=== PATIENT | male | born 1995 | race Caucasian/White ===

== ENCOUNTER 2021-05-04 11:24 | Emergency (ER) | payer OTHER, SELFPAY ==
[2021-05-04 11:38] VITALS: BP 141/79; PULSE 63; RESP 14; TEMP 36.6; O2SAT 99; BMI 38.6
--- NOTE | 2021-05-04 11:39 | DI.US.S_ITS ---
PROCEDURE: US ABDOMEN LIMITED INDICATIONS: UPPER ABDOMINAL PAIN. NAUSEA, VOMITING, AND DIARRHEA TECHNIQUE: Real-time focused scanning was performed of the abdomen, with image documentation. COMPARISON: None. FINDINGS: Liver is normal in size and homogeneous echotexture. Liver is diffusely echogenic. No focal hepatic mass lesions. Gallbladder is sonographically normal. No gallstones. No gallbladder wall thickening. No pericholecystic fluid. No sonographic Reyes sign. No intrahepatic biliary tree dilatation. Extrahepatic biliary tree is obscured by bowel gas and cannot be evaluated. Pancreas is obscured by bowel gas and cannot be evaluated. IMPRESSION: 1. No sonographic evidence of cholelithiasis or cholecystitis. If there is continued clinical concern for cholecystitis, a nuclear medicine HIDA scan should be considered for further evaluation. 2. Echogenic liver. Finding typically represents fatty infiltration; however, finding is nonspecific and correlation with clinical and laboratory findings is recommended to exclude other etiologies including hepatic cirrhosis. Dictated by: La Varghese MD, PhD on 05/04/2021 at 12:22 Approved by: La Varghese MD, PhD on 05/04/2021 at 12:23
[2021-05-04] MEDS: ONDANSETRON 4 MG/2 ML INJ IV (11:53)
[2021-05-04] MEDS: SODIUM CHLORIDE 0.9% 1,000 ML 1000 ML IV (11:54)
[2021-05-04] MEDS: PANTOPRAZOLE 40 MG VIAL IV (11:54)
[2021-05-04 11:55] LABS: Add Manual Diff / Slide Review NO; Basophils Absolute Auto 0 /uL (0-100); Basophils Percent Auto 0.5 % (0-2); Eosinophils Absolute Auto 100 /uL (0-450); Eosinophils Percent Auto 1.7 % (2-4); Hematocrit 46.9 % (41-53); Hemoglobin 15.9 g/dL (13.5-17.5); Lymphocytes Absolute Auto 1600 /uL (1100-4500); Lymphocytes Percent Auto 23.5 % (25-40); Mean Corpuscular HGB Conc 33.8 % (30-36); Mean Corpuscular Hemoglobin 28.9 PG (26-34); Mean Corpuscular Volume 85.3 fL (80-100); Monocytes Absolute Auto 400 /uL (0-900); Monocytes Percent Auto 5.9 % (3-14); Neutrophils Absolute Auto 4700 /uL (1500-7000); Neutrophils Percent Auto 68.4 % (50-75); Platelet Count 234 X10^3/uL (150-400); Red Blood Cell Count 5.49 X10^6/uL (4.5-5.9); White Blood Cell Count 6.9 X10^3/uL (4.5-11.0)
[2021-05-04 12:05] VITALS: PULSE 47; O2SAT 99
[2021-05-04 12:07] VITALS: BP 119/57; PULSE 53; O2SAT 99
[2021-05-04 12:13] LABS: Alanine Aminotransferase 27 IU/L (<50); Albumin 4.8 g/dL (3.5-5.0); Albumin Globulin Ratio 1.5 (1.0-2.8); Alkaline Phosphatase 46 U/L (38-126); Aspartate Aminotransferase 36 IU/L (17-59); BUN Creatinine Ratio 13.5 (6-22); Blood Urea Nitrogen 13 mg/dL (9-20); Carbon Dioxide 27 mmol/L (22-32); Chloride 103 mmol/L (98-107); Estimated Glomerular Filt Rate > 60.0 mL/min (>60); Globulin 3.3 g/dL (1.7-4.1); Glucose 117 mg/dL (70-100); HEMOLYSIS < 15 (0-50); Lipase 74 U/L (23-300); Potassium 3.8 mmol/L (3.4-5.1); Sodium 139 mmol/L (137-145); Total Protein 8.1 g/dL (6.3-8.2)
--- NOTE | 2021-05-04 12:45 | ED_ITS ---
HPI - Abdominal Pain General Chief Complaint: Abdominal Pain Stated Complaint: jittery/sick to stomach/weak in mornings Time Seen by Provider: 05/04/21 11:38 Source: patient Mode of arrival: Ambulatory Limitations: no limitations History of Present Illness HPI narrative: Male nonsmoker with medical history consisting of multiple complications as the results of an appendectomy about 4 years ago. He subsequently developed a ventral hernia that required repair as well, he has had no surgical interventions for 4 years. He presents today because he has had 2-3 years of generalized stomach pressure with frequent nausea, vomiting and diarrhea. He occasionally has blood in it. He denies any significant history o f alcohol use, he has no esophageal varices, he is not dizzy nor weak or lightheaded. He frequently develops sweating in the middle the night and has generally felt unwell for the past few years. When asked why he presents today, what is different he states that he has had trouble getting his doctors to take a look. Related Data Previous Rx's Medication Instructions Recorded ondansetron 4 mg disintegrating 4 mg PO TID-QID PRN #10 tab 05/04/21 tablet Allergies Allergy/AdvReac Type Severity Reaction Status Date / Time No Known Drug Allergies Allergy Verified 05/04/21 11:38 Review of Systems Review of Systems Narrative: GENERAL: See HP HEENT: Denies sinus pain, ear pain, sore throat, difficulty swallowing, dizziness. RESPIRATORY: Denies dyspnea, cough, wheezing, hemoptysis, sputum. CARDIOVASCULAR: Denies chest pain, palpitations, orthopnea, edema, GASTROINTESTINAL: See HPI : Denies dysuria, frequency, incontinence, hematuria, urinary retention. MUSCULOSKELETAL: denies weakness, joint pain, or bony pain SKIN: Denies rash, skin lesions, or other NEUROLOGIC: Denies weakness, headache, numbness, change in speech, confusion, seizures, incoordination. PSYCHIATRIC: No concerning psychosocial issues. 12 point review of systems is negative except for those stated above Patient History Social History Smoking Status: Unknown if ever smoked Smoking Status: Unknown if ever smoked alcohol intake frequency: holidays/special occasions only Substance Use Type: marijuana Exam Narrative Exam Narrative: GENERAL: [25] year old patient appears stated age. Well-develope d patient, in mild distress. HEAD: Atraumatic. Normocephalic. EYES: Pupils equal round and reactive. Extraocular motions intact. No scleral icterus. No injection or drainage. ENT: Nose without bleeding, purulent drainage. Throat without erythema, tonsillar hypertrophy or exudate. Airway patent. NECK: Trachea midline. Non tender CARDIOVASCULAR: Regular rate and rhythm without murmurs, gallops, or rubs. RESPIRATORY: Clear to auscultation. Breath sounds equal bilaterally. No wheezes, rales, or rhonchi. GASTROINTESTINAL: Abdomen soft, non-tender, nondistended. EXTREMITIES: No edema or joint tenderness. BACK: Nontender without deformity or crepitance. No flank tenderness. NEURO: AOx3. SKIN: No rash or erythema of visible areas Initial Vital Signs Initial Vital Signs: Vital Signs Temperature 97.8 F 05/04/21 11:38 Pulse Rate 63 05/04/21 11:38 Respiratory Rate 14 05/04/21 11:38 Blood Pressure 141/79 H 05/04/21 11:38 Pulse Oximetry 99 05/04/21 11:38 Course Orders Ordered: ED Orders 05/04/21 11:39 US abdomen limited Stat 05/04/21 11:45 Complete Blood Count AUTO DIFF Stat Comprehensive Metabolic Panel Stat Lipase Stat Magnesium Stat 05/04/21 12:25 Urine Microscopic Stat Ondansetron HCl (Ondansetron 4 Mg/2 Ml Inj) 4 mg IV Q4HR PRN PRN Reason: Nausea And Vomiting Last Admin: 05/04/21 11:53 Dose: 4 mg Documented by: HAKEEM Discontinued Medications Sodium Chloride (Normal Saline 0.9%) 1,000 mls @ 1,000 mls/hr IV BOLUS ONE Stop: 05/04/21 12:37 Last Infusion: 05/04/21 13:05 Dose: 0 mls/hr Documented by: Admin: 05/04/21 11:54 Dose: 1,000 mls/hr Documented by: HAKEEM Pantoprazole Sodium (Pantoprazole 40 Mg Vial) 40 mg IV NOW ONE Stop: 05/04/21 11:39 Last Admin: 05/04/21 11:54 Dose: 40 mg Documented by: HAKEEM Vital Signs Vital signs: Vital Signs - 8 hr 05/04/21 11:38 05/04/21 12:05 05/04/21 12:07 Temperature 97.8 F Pulse Rate 63 47 L 53 L Respiratory Rate 14 Blood Pressure 141/79 H 119/57 L Pulse Oximetry 99 99 99 MDM - Abdominal Pain Lab Data Result diagrams: 05/04/21 11:45 05/04/21 11:45 Labs: Lab Results 05/04/21 05/04/21 05/04/21 Range/Units 11:45 11:45 12:25 WBC 6.9 (4.5-11.0) X10^3/uL RBC 5.49 (4.5-5.9) X10^6/uL Hgb 15.9 (13.5-17.5) g/dL Hct 46.9 (41-53) % MCV 85.3 (80-100) fL MCH 28.9 (26-34) PG MCHC 33.8 (30-36) % RDW 13.0 (11.6-14.8) % Plt Count 234 (150-400) X10^3/uL Neut % (Auto) 68.4 (50-75) % Lymph % (Auto) 23.5 L (25-40) % [facility] % (Auto) 5.9 (3-14) % Eos % (Auto) 1.7 L (2-4) % Baso % (Auto) 0.5 (0-2) % Neut # (Auto) 4700 (4652-1855) /uL Lymph # (Auto) 1600 (3904-5942) /uL [facility] # (Auto) 400 (0-900) /uL Eos # (Auto) 100 (0-450) /uL Baso # (Auto) 0 (0-100) /uL Sodium 139 (137-145) mmol/L Potassium 3.8 (3.4-5.1) mmol/L Chloride 103 (98-107) mmol/L Carbon Dioxide 27 (22-32) mmol/L BUN 13 (9-20) mg/dL Creatinine 0.96 (0.66-1.25) mg/dL Estimated GFR > 60.0 (>60) mL/min BUN/Creatinine Ratio 13.5 (6-22) Glucose 117 H (70-100) mg/dL Calcium 10.0 (8.4-10.2) mg/dL Magnesium 2.0 (1.6-2.3) mg/dL Total Bilirubin 1.0 (0.2-1.3) mg/dL AST 36 (17-59) IU/L ALT 27 (<50) IU/L Alkaline Phosphatase 46 (38-126) U/L Total Protein 8.1 (6.3-8.2) g/dL Albumin 4.8 (3.5-5.0) g/dL Globulin 3.3 (1.7-4.1) g/dL Albumin/Globulin Ratio 1.5 (1.0-2.8) Lipase 74 (23-300) U/L Urine RBC None seen (0-5/HPF) Urine WBC 0-1/hpf (0-5/HPF) Urine Bacteria None seen (None) Urine Mucus 1+ H (Negative) Ur Culture Indicated? Cult not indicated Point of care testing: Urine Dip Bedside Urine Glucose Negative Bedside Urine Bilirubin - Negative Bedside Urine Ketone - Negative Urine Specific [place] 1.020 Bedside Urine Occult Blood - Negative Bedside Urine pH 6.5 Bedside Urine Protein + 30 Bedside Urine Urobilinogen - Negative Bedside Urine Nitrite - Negative Bedside Urine Leukocytes - Negative Esterase Imaging Data US - abdomen: Radiologist's Impression: Belle Galicia DO Find Patient Imaging - IlyaManjinder Larry 25 M 1995 ACTIVITY DATE EXAM STATUS AUTHOR 05/04/21 11:[address] [id number] ReportSigned Patient: Manjinder Caraballo JMR#: [id number]: 1995Acct:[id number]/Sex: 25 / MDate of Service: 05/04/21Loc: EDAccession Number: [id number] Procedure: US abdomen limited Ordering Provider: Bassem Galicia D.O. PROCEDURE: US ABDOMEN LIMITED INDICATIONS: UPPER ABDOMINAL PAIN. NAUSEA, VOMITING, AND DIARRHEA TECHNIQUE: Real-time focused scanning was performed of the abdomen, with image documentation. COMPARISON: None. FINDINGS: Liver is normal in size and homogeneous echotexture. Liver is diffusely e chogenic. No focal hepatic mass lesions. Gallbladder is sonographically normal. No gallstones. No gallbladder wall thickening. No pericholecystic fluid. No sonographic Reyes sign. No intrahepatic biliary tree dilatation. Extrahepatic biliary tree is obscured by bowel gas and cannot be evaluated. Pancreas is obscured by bowel gas and cannot be evaluated. IMPRESSION: 1. No sonographic evidence of cholelithiasis or cholecystitis. If there is continued clinical concern for cholecystitis, a nuclear medicine HIDA scan should be considered for further evaluation. 2. Echogenic liver. Finding typically represents fatty infiltration; however, finding is nonspecific and correlation with clinical and laboratory findings is recommended to exclude other etiologies including hepatic cirrhosis. Dictated by: La Varghese MD, PhD on 05/04/2021 at 12:22 Approved by: La Varghese MD, PhD on 05/04/2021 at 12:23 [facility] Narrative Medical decision making narrative: Multiple etiologies for patient's symptoms considered including: [Gallbladder disease versus pancreatitis versus other acute on chronic problems] Patient's symptoms improved over duration of stay with above-stated therapies. Findings and discharge diagnosis discussed with patient/family followed by verbalization of understanding Return precautions discussed with patient/family whom verbalize understanding. Discharge Plan Departure Patient Disposition: Home Clinical Impression: Abdominal pain Qualifiers: Abdominal location: generalized Qualified Code(s): R10.84 - Generalized abdominal pain Vomiting Qualifiers: Vomiting type: unspecified Vomiting Intractability: non-intractable Nausea presence: with nausea Qualified Code(s): R11.2 - Nausea with vomiting, unspecified Instructions: DI for Abdominal Pain-Adult Activity Restrictions/Additional Instructions: *You have been diagnosed with [acute on chronic abdominal pain with episodes of nausea, vomiting and diarrhea. Your physical exam, lab work and imaging today was very reassuring.] *What to do: *Please continue to take your regular medications as directed. [ ] New medication prescriptions sent to your pharmacy: [ ] [x ] New medication written as a paper prescription [ ] No new medications given 1. Drink plenty of fluids with frequent small sips. 2. For the next 24 hours a clear liquid diet is advised. After that please employ a B.R.A.T. diet which would include bananas, rice, apples, toast and other mild food items 3. Please take medications as directed. 4. Please follow-up with your doctor in the next 1-2 days. Call the office for an appointment. Let them know you were seen in the Emergency Department and that we ask that you be seen in follow up. We will electronically transmit a record of today's note if your PCP is in our system 5. Please return to the emergency Department for any worsening or persistent symptoms, such as increasing pain or fever. *Return to Emergency Department if you should have any new, worsening or concerning symptoms, such as [fever greater than 101 F, shaking chills, worse bo pain, persistent vomiting or other bothersome symptoms] Prescriptions: New ondansetron 4 mg tablet,disintegrating 4 mg PO TID-QID PRN (Reason: nausea and vomiting) Qty: 10 RF: 0 Referrals: Luh Melo DO [Primary Care Provider] -
[2021-05-04 12:50] LABS: Bacteria Urine None Seen; RBC Urine None Seen (0-5/HPF)
[2021-05-04 12:59] LABS: Culture Indicated Urine Cult Not Indicated; Mucus Urine 1+ (Negative); WBC Urine 0-1/HPF (0-5/HPF)
[2021-05-04 13:29] VITALS: BP 120/85; PULSE 64; RESP 16; O2SAT 99
== END 2021-05-04 13:31 | disposition home or self-care (01) ==
PROVIDERS: Emergency Provider Emergency Medicine; PCP Family Medicine
DX: R10.84 Generalized abdominal pain (principal); R11.2 Nausea with vomiting, unspecified; R19.7 Diarrhea, unspecified
CPT/HCPCS: 36415; 76705; 80053; 81003; 81015; 83690; 83735; 85025; 96361; 96374; 96375; 99284; C9113; J2405

== ENCOUNTER 2021-05-08 22:09 | Emergency (ER) | payer OTHER, SELFPAY ==
[2021-05-08 22:23] VITALS: BP 147/63; PULSE 51; RESP 18; TEMP 36.8; O2SAT 98; BMI 36.6
[2021-05-08 22:39] LABS: Add Manual Diff / Slide Review NO; Basophils Absolute Auto 200 /uL (0-100); Basophils Percent Auto 2.8 % (0-2); Eosinophils Absolute Auto 0 /uL (0-450); Eosinophils Percent Auto 0.4 % (2-4); Hematocrit 44.7 % (41-53); Hemoglobin 15.2 g/dL (13.5-17.5); Lymphocytes Absolute Auto 1300 /uL (1100-4500); Lymphocytes Percent Auto 14.9 % (25-40); Mean Corpuscular HGB Conc 33.9 % (30-36); Mean Corpuscular Hemoglobin 29.1 PG (26-34); Mean Corpuscular Volume 85.9 fL (80-100); Monocytes Absolute Auto 500 /uL (0-900); Monocytes Percent Auto 6.1 % (3-14); Neutrophils Absolute Auto 6600 /uL (1500-7000); Neutrophils Percent Auto 75.8 % (50-75); Platelet Count 234 X10^3/uL (150-400); Red Blood Cell Count 5.21 X10^6/uL (4.5-5.9); Red Cell Distribution Width 12.8 % (11.6-14.8); White Blood Cell Count 8.7 X10^3/uL (4.5-11.0)
[2021-05-08] MEDS: ONDANSETRON 4 MG/2 ML INJ IV (22:40)
[2021-05-08] MEDS: SODIUM CHLORIDE 0.9% 1,000 ML 1000 ML IV (22:40)
[2021-05-08 22:49] LABS: Alanine Aminotransferase 26 IU/L (<50); Albumin 4.6 g/dL (3.5-5.0); Albumin Globulin Ratio 1.5 (1.0-2.8); Alkaline Phosphatase 44 U/L (38-126); Aspartate Aminotransferase 36 IU/L (17-59); BUN Creatinine Ratio 12.5 (6-22); Bilirubin Total 0.9 mg/dL (0.2-1.3); Blood Urea Nitrogen 13 mg/dL (9-20); Calcium 9.5 mg/dL (8.4-10.2); Carbon Dioxide 26 mmol/L (22-32); Chloride 101 mmol/L (98-107); Estimated Glomerular Filt Rate > 60.0 mL/min (>60); Glucose 96 mg/dL (70-100); HEMOLYSIS < 15 (0-50); Lipase 90 U/L (23-300); Potassium 3.4 mmol/L (3.4-5.1); Sodium 137 mmol/L (137-145); Total Protein 7.6 g/dL (6.3-8.2)
[2021-05-08 23:09] LABS: COVID19 -Nasal RAPID Negative (Negative)
--- NOTE | 2021-05-08 23:23 | ED.ABDPAIN ---
HPI - Abdominal Pain General Chief Complaint: Abdominal Pain Stated Complaint: VOMITING AND ABD PAIN Time Seen by Provider: 05/08/21 22:14 Source: patient Mode of arrival: Ambulatory Limitations: no limitations History of Present Illness HPI narrative: 25-year-old gentleman with a history of multiple abdominal surgeries for abdominal hernias with resultant mesh placement after complications from an appendectomy. Notes this he is having recurrent episodes of emesis associated with general malaise. Abdominal pain significant enough that he is unable to eat. He describes intermittent episodes of bloody stool weeks where he has extraordinarily fatigued. Symptoms have been ongoing for a number of years he has had an increase in symptoms in the last couple of days and was seen evaluated in the emergency department for the same on May 04. He notes that he continues to be waking up in the middle of the night with sweats and having recurrent vomiting in the morning. He has had upper and lower endoscopies with no significant findings. He states he ?feels like I am dying?. He does not describe chest pain, palpitations or cough. He does note that he feels like his lungs are filling up with fluid. He does not describe depression anxiety and is not having any suicidal thoughts or ideation. Related Data Previous Rx's Medication Instructions Recorded ondansetron 4 mg disintegrating 4 mg PO TID-QID PRN #10 tab 05/04/21 tablet metoclopramide HCl 10 mg tablet 10 mg PO Q6H PRN #20 tab 05/09/21 ondansetron 4 mg disintegrating 4 mg PO Q6H PRN #20 tab 05/09/21 tablet Allergies Allergy/AdvReac Type Severity Reaction Status Date / Time No Known Drug Allergies Allergy Verified 05/04/21 11:38 Review of Systems Review of Systems Narrative: Remainder of complete review of systems is otherwise unremarkable except for that included in the HPI. Patient History Medical History (Updated 05/09/21 @ 03:14 by Rosa Faulkner MD) Abdominal wall hernia Surgical History (Updated 05/09/21 @ 02:59 by Rosa Faulkner MD) History of appendectomy Social History Smoking Status: Unknown if ever smoked Smoking Status: Unknown if ever smoked alcohol intake frequency: holidays/special occasions only Substance Use Type: marijuana Exam Narrative Exam Narrative: General: Healthy appearing, in no acute distress. Able to give a complete and coherent history. Well-nourished well-developed HEENT: Moist mucous membranes, normal sclera with reactive pupils, Respiratory: Lungs are clear to auscultation, no wheezing no rales no rhonchi. Full and symmetrical air movement Cardiac: Regular rate and rhythm no murmurs no bruits Abdomen: Soft, nontender, good bowel tones, no flank pain Skin: Warm and dry, no rashes Neurologic: Grossly neurologically intact with no obvious asymmetries or abnormalities Extremities: No trauma, well perfused Psych: Cooperative, appropriate insight and affect Initial Vital Signs Initial Vital Signs: Vital Signs Temperature 98.2 F 05/08/21 22:23 Pulse Rate 51 L 05/08/21 22:23 Respiratory Rate 18 05/08/21 22:23 Blood Pressure 147/63 H 05/08/21 22:23 Pulse Oximetry 98 05/08/21 22:23 Course Orders Ordered: ED Orders 05/08/21 22:30 Complete Blood Count AUTO DIFF Stat Comprehensive Metabolic Panel Stat Lipase Stat 05/08/21 22:45 COVID19 -Nasal swab/Pre-Proc Stat 05/09/21 00:13 CT abdomen pelvis w con Stat Hydromorphone HCl (Hydromorphone 0.5 Mg Inj) 0.5 mg IV Q15MIN PRN PRN Reason: Pain, Discontinued Medications Sodium Chloride (Normal Saline 0.9%) 1,000 mls @ 1,000 mls/hr IV BOLUS ONE Stop: 05/08/21 23:22 Last Infusion: 05/09/21 00:07 Dose: 0 mls/hr Documented by: Admin: 05/08/21 22:40 Dose: 1,000 mls/hr Documented by: CTRCHRISTOPHER Metoclopramide HCl (Metoclopramide 10 Mg/2 Ml Inj) 10 mg IV NOW ONE Stop: 05/09/21 03:07 Ondansetron HCl (Ondansetron 4 Mg/2 Ml Inj) 4 mg IV NOW ONE Stop: 05/08/21 22:24 Last Admin: 05/08/21 22:40 Dose: 4 mg Documented by: SHELLY Ondansetron HCl (Ondansetron 4 Mg/2 Ml Inj) 4 mg IV NOW ONE Stop: 05/09/21 01:19 Last Admin: 05/09/21 01:26 Dose: 4 mg Documented by: HERBERT Ondansetron HCl (Ondansetron 4 Mg Odt Prepack) 1 bottle MISC SEEINSTR ONE Stop: 05/09/21 03:07 Vital Signs Vital signs: Vital Signs - 8 hr 05/08/21 22:23 Temperature 98.2 F Pulse Rate 51 L Respiratory Rate 18 Blood Pressure 147/63 H Pulse Oximetry 98 MDM - Abdominal Pain Lab Data Result diagrams: 05/08/21 22:30 05/08/21 22:30 Labs: Lab Results 05/08/21 05/08/21 05/08/21 Range/Units 22:30 22:30 22:45 WBC 8.7 (4.5-11.0) X10^3/uL RBC 5.21 (4.5-5.9) X10^6/uL Hgb 15.2 (13.5-17.5) g/dL Hct 44.7 (41-53) % MCV 85.9 (80-100) fL MCH 29.1 (26-34) PG MCHC 33.9 (30-36) % RDW 12.8 (11.6-14.8) % Plt Count 234 (150-400) X10^3/uL Neut % (Auto) 75.8 H (50-75) % Lymph % (Auto) 14.9 L (25-40) % [place] % (Auto) 6.1 (3-14) % Eos % (Auto) 0.4 L (2-4) % Baso % (Auto) 2.8 H (0-2) % Neut # (Auto) 6600 (6394-7468) /uL Lymph # (Auto) 1300 (5141-4476) /uL [place] # (Auto) 500 (0-900) /uL Eos # (Auto) 0 (0-450) /uL Baso # (Auto) 200 H (0-100) /uL Sodium 137 (137-145) mmol/L Potassium 3.4 (3.4-5.1) mmol/L Chloride 101 (98-107) mmol/L Carbon Dioxide 26 (22-32) mmol/L BUN 13 (9-20) mg/dL Creatinine 1.04 (0.66-1.25) mg/dL Estimated GFR > 60.0 (>60) mL/min BUN/Creatinine Ratio 12.5 (6-22) Glucose 96 (70-100) mg/dL Calcium 9.5 (8.4-10.2) mg/dL Total Bilirubin 0.9 (0.2-1.3) mg/dL AST 36 (17-59) IU/L ALT 26 (<50) IU/L Alkaline Phosphatase 44 (38-126) U/L Total Protein 7.6 (6.3-8.2) g/dL Albumin 4.6 (3.5-5.0) g/dL Globulin 3.0 (1.7-4.1) g/dL Albumin/Globulin Ratio 1.5 (1.0-2.8) Lipase 90 (23-300) U/L SARS-CoV-2 (PCR) Negative (Negative) Imaging Data CT scan - abdomen/pelvis: Radiologist's Impression: Prominent lymph nodes in the right mid abdomen without overt adenopathy. This finding can be seen with enteritis or chronic low grade bowel inflammation. Gerardo Reagan MD [facility] Narrative Medical decision making narrative: 25-year-old gentleman with recurrent nausea vomiting and abdominal pain after appendectomy approximately 5 years ago. He has had multiple workups and today CT scan was minimally revealing. Continues to feel like he is chronically ill. Reassurance is given regarding labs as well as CT scans. No evidence of infection, bowel obstruction, metabolic abnormalities or electrolyte abnormalities. Clearly there is more to the story and I have encouraged him to follow-up with additional providers as an outpatient. He is safe for home discharge Discharge Plan Departure Patient Disposition: Home Clinical Impression: Abdominal pain Qualifiers: Abdominal location: upper abdomen, unspecified Qualified Code(s): R10.10 - Upper abdominal pain, unspecified Vomiting Qualifiers: Vomiting type: unspecified Vomiting Intractability: non-intractable Nausea presence: with nausea Qualified Code(s): R11.2 - Nausea with vomiting, unspecified Instructions: DI for Abdominal Pain-Adult Activity Restrictions/Additional Instructions: Thank you for coming in today Fortunately I did not find any life-threatening explanation for your pain. Your CT scan suggested mild inflammation of your gut which is absolutely consistent with your complaints and physical exam. Unfortunately, I also do not have suggestions on how best to alleviate your pain or what the next steps might be. I have given you some Zofran to go home with. I have given you a prescription for both Zofran/ondansetron and Reglan/metoclopramide. Both her anti nausea medications that work through different mechanisms. Please do follow-up with your primary care provider. I hope that you feel better Prescriptions: New ondansetron 4 mg tablet,disintegrating 4 mg PO Q6H PRN (Reason: nausea and vomiting) Qty: 20 RF: 1 metoclopramide HCl 10 mg tablet 10 mg PO Q6H PRN (Reason: nausea and vomiting) Qty: 20 RF: 1 No Action ondansetron 4 mg tablet,disintegrating 4 mg PO TID-QID PRN (Reason: nausea and vomiting) Qty: 10 RF: 0 Referrals: Luh Melo DO [Primary Care Provider] -
--- NOTE | 2021-05-09 00:13 | DI.CT.S_ITS ---
PROCEDURE: CT ABDOMEN PELVIS W CON INDICATIONS: abdominal pain, multiple prior abdomnal wall hernia surgerie TECHNIQUE: After the administration of intravenous contrast, axial sections acquired from the lung bases to the pubic symphysis. Coronal and sagittal reformats were performed. For radiation dose reduction, the following was used: automated exposure control, adjustment of mA and/or kV according to patient size. COMPARISON: [facility], CT, CT ABDOMEN PELVIS WITH CONTRAST, 06/26/2020, 13:31. FINDINGS: Image quality: Excellent. Lung bases: Unremarkable. Heart: No significant findings. ABDOMEN: Liver: Unremarkable. Gallbladder: Unremarkable. Biliary ducts: Unremarkable. Pancreas: Unremarkable. Spleen: Unremarkable. Adrenal Glands: Unremarkable. Kidneys and Ureters: Unremarkable. Stomach and Bowel: Stomach, small bowel loops, and colon are unremarkable. Appendectomy clips are present. Peritoneum: No abnormal intraperitoneal fluid. No free air. Ventral Wall: No hernias. Abdominal Nodes: No retroperitoneal adenopathy. No change in mildly enlarged lymph node within the right hemiabdomen posteriorly measuring 11 mm short axis. Vessels: Aorta and inferior vena cava are normal in size. PELVIS: Pelvic Organs: Unremarkable. Bladder: Unremarkable. Pelvic Nodes: No enlarged lymph nodes. Miscellaneous: No hernias are seen. Bones: Unremarkable. IMPRESSION: 1. No acute process. 2. No change in mild adenopathy within the right lower quadrant mesentery. 3. Concordant with preliminary interpretation. Dictated by: Sury Ramos M.D. on 05/09/2021 at 7:47 Approved by: Sury Ramos M.D. on 05/09/2021 at 7:49
[2021-05-09] MEDS: ONDANSETRON 4 MG/2 ML INJ IV (01:26)
[2021-05-09] MEDS: METOCLOPRAMIDE 10 MG/2 ML INJ IV (03:15)
[2021-05-09] MEDS: ONDANSETRON 4 MG ODT PREPACK 1 BOTTLE MISC (03:16)
[2021-05-09 03:45] VITALS: BP 119/59; PULSE 55; RESP 15; TEMP 36.3; O2SAT 97
== END 2021-05-09 03:35 | disposition home or self-care (01) ==
PROVIDERS: Emergency Provider Emergency Medicine; PCP Family Medicine
DX: R10.10 Upper abdominal pain, unspecified (principal); R11.2 Nausea with vomiting, unspecified; Z20.822 Contact with and (suspected) exposure to COVID-19
CPT/HCPCS: 36415; 74177; 80053; 83690; 85025; 87635; 96361; 96374; 96375; 96376; 99284; C9803; J2405; J2765; Q9967

== ENCOUNTER 2022-06-16 08:30 | Emergency (ER) | payer OTHER, SELFPAY ==
[2022-06-16] VITALS (9 sets, daily range): BP systolic 125–165; BP diastolic 60–98; PULSE 37–58; RESP 11–24; TEMP 36.9–37.1; O2SAT 97–100; BMI 38.0
--- NOTE | 2022-06-16 08:50 | DI.CT.S_ITS ---
PROCEDURE: CT ABDOMEN PELVIS W CON INDICATIONS: IV contrast only/epigastric pain TECHNIQUE: After the administration of intravenous contrast, axial sections acquired from the lung bases to the pubic symphysis. Coronal and sagittal reformats were performed. For radiation dose reduction, the following was used: automated exposure control, adjustment of mA and/or kV according to patient size. COMPARISON: [facility], CT, CT ABDOMEN PELVIS W CON, 05/09/2021, 0:30. FINDINGS: Image quality: Excellent. Lung bases: Unremarkable. Heart: No significant findings. ABDOMEN: Liver: Unremarkable. Gallbladder: Is within normal limits Biliary ducts: Unremarkable. Pancreas: Unremarkable. Spleen: Unremarkable. Adrenal Glands: Unremarkable. Kidneys and Ureters: Unremarkable. Stomach and Bowel: Small hiatal hernia. Mild thickening of the distal esophagus, new since the prior examination. Stomach, small bowel loops, and colon are unremarkable. Normal appendix. Peritoneum: No abnormal intraperitoneal fluid. No free air. Ventral Wall: No hernias. Abdominal Nodes: No retroperitoneal or mesenteric adenopathy by size criteria. No change in mildly prominent subcentimeter right lower quadrant mesenteric lymph nodes. Vessels: Aorta and inferior vena cava are normal in size. PELVIS: Pelvic Organs: Unremarkable. Bladder: Unremarkable. Pelvic Nodes: No enlarged lymph nodes. Miscellaneous: No hernias are seen. Bones: Unremarkable. IMPRESSION: 1. Mild thickening of the distal esophagus, new since the prior examination. Further assessment with endoscopy is recommended to exclude underlying neoplasm. 2. Normal appendix. 3. No change in chronic, mildly prominent right lower quadrant mesenteric lymph node prominence. Dictated by: Sury Ramos M.D. on 06/16/2022 at 9:12 Approved by: Sury Ramos M.D. on 06/16/2022 at 9:14
--- NOTE | 2022-06-16 08:51 | ED.ABDPAIN ---
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 He drove himself here. Had epigastric pain onset 3:00 a.m. this morning with hematemesis and nonbloody diarrhea. No fever chills. No urinary complaints. Patient has had appendectomy in the past as well as hernia repair. Denies any history of ulcerative colitis or Crohn's disease. No back pain no chest pain. No syncope. Related Data Previous Rx's Medication Instructions Recorded ondansetron 4 mg disintegrating 4 mg PO TID-QID PRN nausea and 05/04/21 tablet vomiting #10 tabs metoclopramide HCl 10 mg tablet 10 mg PO Q6H PRN nausea and 05/09/21 vomiting #20 tabs ondansetron 4 mg disintegrating 4 mg PO Q6H PRN nausea and 05/09/21 tablet vomiting #20 tabs ondansetron 4 mg disintegrating 4 mg PO Q8H PRN nausea and 06/16/22 tablet vomiting #20 tabs pantoprazole 40 mg tablet,delayed 40 mg PO DAILY #30 tabs 06/16/22 release (Protonix) Allergies Allergy/AdvReac Type Severity Reaction Status Date / Time No Known Drug Allergies Allergy Verified 05/04/21 11:38 Review of Systems Review of Systems Narrative: GENERAL: Denies chills, fatigue, malaise, fever, sweats. HEENT: Denies sinus pain, ear pain, sore throat RESPIRATORY: Denies dyspnea, cough CARDIOVASCULAR: Denies chest pain, palpitations GASTROINTESTINAL: Positive for hematemesis, nonbloody diarrhea, nausea, vomiting, abdominal pain : Denies dysuria, frequency, hematuria MUSCULOSKELETAL: denies muscle or bony pain SKIN: Denies rash, skin lesions NEUROLOGIC: Denies weakness, numbness ROS Unobtainable: All systems reviewed & are unremarkable except as noted in HPI and below Patient History Medical History Abdominal wall hernia Surgical History History of appendectomy Social History Smoking Status: Unknown if ever smoked Smoking Status: Unknown if ever smoked alcohol intake frequency: holidays/special occasions only Substance Use Type: marijuana Exam Narrative Exam Narrative: GENERAL: in no distress, not toxic not dyspneic HEAD: Normocephalic. EYES: Pupils equal round No scleral icterus. ENT: Mucous membranes moist. NECK: Trachea midline. CARDIOVASCULAR: Regular rate and rhythm without murmurs RESPIRATORY: Clear to auscultation. Breath sounds equal bilaterally. No wheezes, rales, or rhonchi. GASTROINTESTINAL: Abdomen soft, mild epigastric and periumbilical tenderness, no peritoneal signs, bowel sounds are present. No CVA tenderness EXTREMITIES: No gross deformities. BACK: No flank tenderness. NEURO: AOx4. SKIN: Warm and dry PSYCH: Not anxious, is cooperative Initial Vital Signs Initial Vital Signs: Vital Signs Blood Pressure 165/98 H 06/16/22 08:30 Course Course Course Narrative: No new issues during course of stay Orders Ordered: ED Orders 06/16/22 10:06 EKG-12 Lead Stat Discontinued Medications Sodium Chloride (Normal Saline 0.9%) 1,000 mls @ 1,000 mls/hr IV BOLUS ONE Stop: 06/16/22 09:40 Last Infusion: 06/16/22 10:53 Dose: 0 mls/hr Documented By: Admin: 06/16/22 09:05 Dose: 1,000 mls/hr Documented By: YURI(2) Morphine Sulfate (Morphine 4 Mg/Ml Inj) 4 mg IV NOW ONE Stop: 06/16/22 08:51 Last Admin: 06/16/22 09:04 Dose: 4 mg Documented By: YURI(2) Morphine Sulfate (Morphine 4 Mg/Ml Inj) 4 mg IV NOW ONE Stop: 06/16/22 11:03 Last Admin: 06/16/22 11:06 Dose: 4 mg Documented By: YURI(2) Ondansetron HCl (Ondansetron 4 Mg/2 Ml Inj) 4 mg IV NOW ONE Stop: 06/16/22 08:42 Last Admin: 06/16/22 09:04 Dose: 4 mg Documented By: YURI(2) Pantoprazole Sodium (Pantoprazole 40 Mg Vial) 40 mg IV NOW ONE Stop: 06/16/22 10:51 Last Admin: 06/16/22 11:00 Dose: 40 mg Documented By: OSLITARIO Reevaluation(s) Reevaluation #1: Mother at bedside. Patient is pain-free. No hematemesis or vomiting here. Patient feels much better. Heart rate noted EKG noted. This is patient's baseline heart rate. Noted 1 year ago during visit here. Return precautions reviewed with them. Results reviewed with them. Likely Caitlyn-Brice tear that has resolved. Laboratory studies are reassuring. Hiatal hernia noted and patient states and points to left upper quadrant area and epigastric area as his area of discomfort. Had endoscopy greater than 5 years ago. They are familiar with this procedure and needs to be done outpatient basis. Time: 10:49 Vital Signs Vital signs: Vital Signs - 8 hr 06/16/22 10:30 06/16/22 10:31 06/16/22 10:31 Temperature Pulse Rate 58 L 57 L Respiratory Rate 21 24 Blood Pressure 125/60 Pulse Oximetry 97 99 Oxygen Delivery Method 06/16/22 11:00 06/16/22 11:00 06/16/22 11:19 Temperature 98.5 F Pulse Rate 55 L Respiratory Rate 21 Blood Pressure 154/82 H Pulse Oximetry 99 Oxygen Delivery Method Room Air MDM - Abdominal Pain Differential Diagnosis Differential diagnosis: Likely abdominal pain, pancreatitis, small bowel obstruction and other (Esophagitis/hernia/pancreatitis) Lab Data Result diagrams: 06/16/22 08:47 06/16/22 08:47 Labs: Lab Results 06/16/22 06/16/22 06/16/22 Range/Units 08:47 08:47 08:47 WBC 9.8 (4.5-11.0) X10^3/uL RBC 5.44 (4.5-5.9) X10^6/uL Hgb 15.9 (13.5-17.5) g/dL Hct 46.6 (41-53) % MCV 85.6 (80-100) fL MCH 29.2 (26-34) PG MCHC 34.1 (30-36) % RDW 13.2 (11.6-14.8) % Plt Count 272 (150-400) X10^3/uL Neut % (Auto) 45.9 L (50-75) % Lymph % (Auto) 41.7 H (25-40) % [place] % (Auto) 7.9 (3-14) % Eos % (Auto) 3.5 (2-4) % Baso % (Auto) 1.0 (0-2) % Neut # (Auto) 4500 (2259-6545) /uL Lymph # (Auto) 4100 (2960-6611) /uL [place] # (Auto) 800 (0-900) /uL Eos # (Auto) 300 (0-450) /uL Baso # (Auto) 100 (0-100) /uL Sodium 139 (137-145) mmol/L Potassium 3.7 (3.4-5.1) mmol/L Chloride 100 (98-107) mmol/L Carbon Dioxide 31 (22-32) mmol/L BUN 13 (9-20) mg/dL Creatinine 1.00 (0.66-1.25) mg/dL Estimated GFR > 60 (>60) mL/min BUN/Creatinine Ratio 13.0 (6-22) Glucose 104 H (70-100) mg/dL Lactate 1.4 (0.7-2.1) mmol/L Calcium 9.0 (8.4-10.2) mg/dL Total Bilirubin 0.6 (0.2-1.3) mg/dL AST 46 (17-59) IU/L ALT 38 (<50) IU/L Alkaline Phosphatase 38 (38-126) U/L Total Protein 7.8 (6.3-8.2) g/dL Albumin 4.6 (3.5-5.0) g/dL Globulin 3.2 (1.7-4.1) g/dL Albumin/Globulin Ratio 1.4 (1.0-2.8) Lipase 93 (23-300) U/L Procalcitonin (<0.5) ng/mL 06/16/22 Range/Units 08:47 WBC (4.5-11.0) X10^3/uL RBC (4.5-5.9) X10^6/uL Hgb (13.5-17.5) g/dL Hct (41-53) % MCV (80-100) fL MCH (26-34) PG MCHC (30-36) % RDW (11.6-14.8) % Plt Count (150-400) X10^3/uL Neut % (Auto) (50-75) % Lymph % (Auto) (25-40) % [place] % (Auto) (3-14) % Eos % (Auto) (2-4) % Baso % (Auto) (0-2) % Neut # (Auto) (3206-3387) /uL Lymph # (Auto) (0256-7816) /uL [place] # (Auto) (0-900) /uL Eos # (Auto) (0-450) /uL Baso # (Auto) (0-100) /uL Sodium (137-145) mmol/L Potassium (3.4-5.1) mmol/L Chloride (98-107) mmol/L Carbon Dioxide (22-32) mmol/L BUN (9-20) mg/dL Creatinine (0.66-1.25) mg/dL Estimated GFR (>60) mL/min BUN/Creatinine Ratio (6-22) Glucose (70-100) mg/dL Lactate (0.7-2.1) mmol/L Calcium (8.4-10.2) mg/dL Total Bilirubin (0.2-1.3) mg/dL AST (17-59) IU/L ALT (<50) IU/L Alkaline Phosphatase (38-126) U/L Total Protein (6.3-8.2) g/dL Albumin (3.5-5.0) g/dL Globulin (1.7-4.1) g/dL Albumin/Globulin Ratio (1.0-2.8) Lipase (23-300) U/L Procalcitonin 0.04 (<0.5) ng/mL Imaging Data CT scan - abdomen/pelvis: Radiologist's Impression: [address] [address] [address] Scan Report Signed Patient: Manjinder Caraballo MR#: [id number] : 1995 Acct:[id number] Age/Sex: 26 / M Date of Service: 06/16/22 Loc: ED Accession Number: [id number] ?? Procedure: CT abdomen pelvis w con Ordering Provider: Bill Abrams MD PROCEDURE:? CT ABDOMEN PELVIS W CON ? INDICATIONS:? IV contrast only/epigastric pain ? TECHNIQUE:? After the administration of intravenous contrast, axial sections acquired from the lung bases to the pubic symphysis.? Coronal and sagittal reformats were performed.? For radiation dose reduction, the following was used:? automated exposure control, adjustment of mA and/or kV according to patient size.? ? COMPARISON:? [facility], CT, CT ABDOMEN PELVIS W CON, 05/09/2021, 0:30. ? FINDINGS:? Image quality:? Excellent.? ? Lung bases:? Unremarkable. Heart:? No significant findings. ? ABDOMEN: Liver:? Unremarkable.? ? Gallbladder:? Is within normal limits? ? Biliary ducts:? Unremarkable.? ? Pancreas:? Unremarkable.? ? Spleen:? Unremarkable.? ? Adrenal Glands:? Unremarkable.? ? Kidneys and Ureters:? Unremarkable.? ? ? Stomach and Bowel:? Small hiatal hernia.? Mild thickening of the distal esophagus, new since the prior examination.? Stomach, small bowel loops, and colon are unremarkable.? Normal appendix. Peritoneum:? No abnormal intraperitoneal fluid.? No free air.? ? Ventral Wall: ? No hernias.? Abdominal Nodes:? No retroperitoneal or mesenteric adenopathy by size criteria.? No change in mildly prominent subcentimeter right lower quadrant mesenteric lymph nodes. Vessels:? Aorta and inferior vena cava are normal in size.? ? PELVIS: Pelvic Organs:? Unremarkable.? ? Bladder:? Unremarkable.? ? Pelvic Nodes: No enlarged lymph nodes.? Miscellaneous: No hernias are seen. ? ? ? Bones:? Unremarkable.? IMPRESSION:? 1. Mild thickening of the distal esophagus, new since the prior examination.? Further assessment with endoscopy is recommended to exclude underlying neoplasm. 2. Normal appendix. 3. No change in chronic, mildly prominent right lower quadrant mesenteric lymph node prominence.? ? ? Dictated by: Sury Ramos M.D. on 06/16/2022 at 9:12 ? ? Approved by: Sury Ramos M.D. on 06/16/2022 at 9:14 ? ECG Data Interpretation: Sinus rhythm rate [address] elevation or depression. Patient baseline heart rate from last year varies between 40 and 60 MDM Narrative Medical decision making narrative: Appropriate for discharge home. Hematemesis likely Caitlyn-Brice tear. However hemoglobin is stable. No active vomiting here. Mother at bedside reviewed results with mother and patient. Agree for outpatient follow-up with Dr. Case, general surgeon for endoscopy. Agrees with Zofran and Protonix. Return precautions reviewed with them. They desire discharge home. Discharge Plan Departure Patient Disposition: Home Clinical Impression: Abdominal pain, Esophagitis, Hernia, hiatal Instructions: DI for Abdominal Pain-Adult, DI for Hiatal Hernia, DI for Esophagitis Activity Restrictions/Additional Instructions: No driving or operating machinery today. Please call Dr. Case office today to make appointment for endoscopy and re-evaluation. Prescription for Protonix and Zofran has been sent to your pharmacy. Keep well hydrated. Return if worse if any questions or concerns. Return if any black or bloody stools or any continued bloody vomit. Prescriptions: New pantoprazole [Protonix] 40 mg tablet,delayed release (DR/EC) 40 mg PO DAILY Qty: 30 0RF ondansetron 4 mg tablet,disintegrating 4 mg PO Q8H PRN (Reason: nausea and vomiting) Qty: 20 0RF No Action ondansetron 4 mg tablet,disintegrating 4 mg PO TID-QID PRN (Reason: nausea and vomiting) Qty: 10 0RF ondansetron 4 mg tablet,disintegrating 4 mg PO Q6H PRN (Reason: nausea and vomiting) Qty: 20 1RF metoclopramide HCl 10 mg tablet 10 mg PO Q6H PRN (Reason: nausea and vomiting) Qty: 20 1RF Referrals: Luh Melo DO [Primary Care Provider] - Debra Case MD [Physician] - Visit Report Forms: Patient Portal/API
[2022-06-16 08:55] LABS: Add Manual Diff / Slide Review NO; Basophils Absolute Auto 100 /uL (0-100); Eosinophils Absolute Auto 300 /uL (0-450); Eosinophils Percent Auto 3.5 % (2-4); Hematocrit 46.6 % (41-53); Hemoglobin 15.9 g/dL (13.5-17.5); Lymphocytes Absolute Auto 4100 /uL (1100-4500); Lymphocytes Percent Auto 41.7 % (25-40); Mean Corpuscular HGB Conc 34.1 % (30-36); Mean Corpuscular Hemoglobin 29.2 PG (26-34); Mean Corpuscular Volume 85.6 fL (80-100); Monocytes Absolute Auto 800 /uL (0-900); Monocytes Percent Auto 7.9 % (3-14); Neutrophils Absolute Auto 4500 /uL (1500-7000); Neutrophils Percent Auto 45.9 % (50-75); Platelet Count 272 X10^3/uL (150-400); Red Blood Cell Count 5.44 X10^6/uL (4.5-5.9); Red Cell Distribution Width 13.2 % (11.6-14.8); White Blood Cell Count 9.8 X10^3/uL (4.5-11.0)
[2022-06-16] MEDS: MORPHINE 4 MG/ML INJ IV ×2 (09:04→11:06)
[2022-06-16] MEDS: ONDANSETRON 4 MG/2 ML INJ IV (09:04)
[2022-06-16] MEDS: SODIUM CHLORIDE 0.9% 1,000 ML 1000 ML IV (09:05)
[2022-06-16 09:06] LABS: Alanine Aminotransferase 38 IU/L (<50); Albumin 4.6 g/dL (3.5-5.0); Albumin Globulin Ratio 1.4 (1.0-2.8); Alkaline Phosphatase 38 U/L (38-126); Aspartate Aminotransferase 46 IU/L (17-59); Bilirubin Total 0.6 mg/dL (0.2-1.3); Blood Urea Nitrogen 13 mg/dL (9-20); Carbon Dioxide 31 mmol/L (22-32); Chloride 100 mmol/L (98-107); Estimated Glomerular Filt Rate > 60 mL/min (>60); Globulin 3.2 g/dL (1.7-4.1); Glucose 104 mg/dL (70-100); HEMOLYSIS 23 (0-50); Lactate (Lactic Acid) 1.4 mmol/L (0.7-2.1); Lipase 93 U/L (23-300); Potassium 3.7 mmol/L (3.4-5.1); Sodium 139 mmol/L (137-145); Total Protein 7.8 g/dL (6.3-8.2)
[2022-06-16 09:23] LABS: Procalcitonin 0.04 ng/mL (<0.5)
--- NOTE | 2022-06-16 09:30 | PC.NURSE ---
Patient is Hammad on monitor since arrival, HR vary 35-55. Physician advised/aware. Pt states he tends to run a low heart rate.
[2022-06-16] MEDS: PANTOPRAZOLE 40 MG VIAL IV (11:00)
== END 2022-06-16 11:15 | disposition home or self-care (01) ==
PROVIDERS: Emergency Provider Emergency Medicine; PCP Family Medicine
DX: R10.13 Epigastric pain (principal); K20.90 Esophagitis, unspecified without bleeding; K44.9 Diaphragmatic hernia without obstruction or gangrene; K92.0 Hematemesis
CPT/HCPCS: 36415; 74177; 80053; 83605; 83690; 84145; 85025; 93005; 93010; 96361; 96374; 96375; 96376; 99284; C9113; J2270; J2405; Q9967

== ENCOUNTER → 2022-10-19 10:05 | Outpatient (CLI) | payer OTHER, SELFPAY ==
[2022-10-19 12:40] LABS: COVID19 -Nasal RAPID Negative (Negative)
== END ==
PROVIDERS: PCP Family Medicine; Visit Provider Surgery
DX: Z01.812 Encounter for preprocedural laboratory examination (principal); Z20.822 Contact with and (suspected) exposure to COVID-19
CPT/HCPCS: 87635; C9803

== ENCOUNTER 2022-10-20 13:58 | Day surgery (SDC) | payer OTHER, SELFPAY ==
--- NOTE | 2022-10-20 | PATH_ITS ---
[facility] Accession Number: [id number] No. of containers..02 Tissue . 01 Material submitted: . PART A: stomach - ANTRUM PART B: esophagus - DISTAL ESOPHAGUS . 01 Diagnosis: A. Stomach, Antrum, Biopsy: Antral mucosa with reactive gastropathy and mild chronic gastritis. Negative for Helicobacter by immunohistochemistry. Negative for intestinal metaplasia. Negative for dysplasia or malignancy. . B. Distal Esophagus, Biopsy: Squamous mucosa with no diagnostic abnormality. Intraepithelial eosinophils are not increased. Negative for dysplasia and malignancy. [facility] 10/24/2022 1040 Local . 01 Electronically signed: . Tammi Savage MD, Pathologist NPI- [id number] . 01 Gross description: . Part A: ANTRUM: Received in formalin are 4 fragment(s) of mendoza, soft tissue measuring 0.4 x 0.3 x 0.1 cm to 0.2 x 0.1 x 0.1 cm submitted entirely in 1 cassette(s) Part B: DISTAL ESOPHAGUS: Received in formalin are 3 fragment(s) of mendoza, soft tissue measuring 0.5 x 0.2 x 0.1 cm to 0.3 x 0.2 x 0.1 cm submitted entirely in 1 cassette(s) /CPE 10/21/2022 0856 Local . 01 Microscopic: . A. An immunohistochemical stain was performed to evaluate for Helicobacter organisms and is negative. The control stain showed appropriate reactivity. . . * This test was developed and its performance characteristics determined by [employer]. It has not been cleared or approved by the U.S. Food and Drug Administration. The FDA has determined that such clearance or approval is not necessary. This test is used for clinical purposes. It should not be regarded as investigational or for research. . 01 Pathologist provided ICD-10: K62.5 . 01 CPT . 773543, 344726, A59745 Specimen Comment: A courtesy copy of this report has been sent to [phone] Performed at: 01 [facility] [address] [place] [address], [place], [place] [id number] MD Kael Blodo MD Phone: [phone]
[2022-10-20 14:31] VITALS: BP 140/79; PULSE 70; RESP 16; TEMP 36.6; O2SAT 97; BMI 40.6
[2022-10-20] MEDS: LACTATED RINGERS 1,000 ML 42 ML IV (15:30)
--- NOTE | 2022-10-20 16:07 | PM.OP.EC ---
Operative Date/Time/Diagnoses Date of procedure: 10/20/22 Time of procedure: 16:07 Pre-op diagnosis: Rectal bleeding and abnormal imaging of the esophagus Post-op diagnosis: same Procedure & Clinicians Study performed: EGD and colonoscopy Same procedure as scheduled: Yes Surgeon: Kasi Naranjo Procedure Notes Procedure in detail: Surgeon: Kasi Naranjo MD Anesthesia: Susan Ashton CRNA Procedure in detail: A timeout was performed. A bite blocked was placed and monitors were attached to the patient. The patient was positioned in a left lateral decubitus position. Sedation was administered by Susan Ashton CRNA. Once the patient was sedated the endoscope was inserted through the bite block and passed through the esophagus and stomach and into the duodenum. The duodenum was normal. We then withdrew the scope into the stomach. There were some moderate antritis and random biopsies were taken from the antrum. The endoscope was retroflexed and small hiatal hernia was seen. The endoscope was straightned and withdrawn into the esophagus. There was some distal esophagitis and random biopsies were taken from the distal esophagus. Findings: Moderate antritis and distal esophagitis Next we repositioned the patient for a colonoscopy. A digital rectal exam was performed and was normal. The colonoscope was inserted and advanced to the cecum. The appendiceal orifice was identified and photographed. The scope was slowly withdrawn over greater than 6 minutes. No polyps or other lesions were noted. The scope was retroflexed in the rectum and no abnormalities were seen. Findings: Normal colon Scope withdrawal time: 10 minutes Sedation minutes: 24 minutes Post-procedure Disposition: PACU
[2022-10-20 16:10] VITALS: BP 149/74; PULSE 77; RESP 19; TEMP 36.6; O2SAT 100
[2022-10-20 16:15] VITALS: BP 142/92; PULSE 57; RESP 14; O2SAT 99
[2022-10-20 16:21] VITALS: BP 147/86; PULSE 64; RESP 12; TEMP 36.5; O2SAT 99
[2022-10-20 16:28] VITALS: BP 141/97; PULSE 56; RESP 14; O2SAT 100
== END 2022-10-20 16:50 | disposition home or self-care (01) ==
PROVIDERS: PCP Family Medicine; Referring Provider Surgery; Visit Provider Surgery
PROC: 0DJ08ZZ Inspection of Upper Intestinal Tract, Via Natural or Artificial Opening Endoscopic (ICD-10-PCS; CPT 43235; principal; 2022-10-20 14:30)
PROC: 0DJD8ZZ Inspection of Lower Intestinal Tract, Via Natural or Artificial Opening Endoscopic (ICD-10-PCS; CPT 45378; 2022-10-20 14:30)
DX: K62.5 Hemorrhage of anus and rectum (principal); K29.50 Unspecified chronic gastritis without bleeding; K44.9 Diaphragmatic hernia without obstruction or gangrene; K20.90 Esophagitis, unspecified without bleeding
CPT/HCPCS: 43239; 45378; J2704